=== PATIENT | female | born 1955 | race Two or more races ===

== ENCOUNTER 2016-09-10 16:08 | Emergency (ER) | payer MEDICAID ==
[~2016-09-10] VITALS: Ht 149.9 cm; Wt 52.2 kg
[2016-09-10 16:36] VITALS: BP 152/77
[2016-09-10 17:11] LABS: Basophils # (auto) 0.1 uL; Basophils % (auto) 0.7 % (0.0-2.0); DEFINITIVE VIEW TRANSMISSION; Eosinophils # (auto) 0.3 uL; Eosinophils % (auto) 1.8 % (0.0-7.0); Hematocrit 42.5 % (36.0-46.0); Hemoglobin 13.4 g/dL (12.2-16.2); Lymphocytes # (auto) 2.6 uL; Lymphocytes % (auto) 17.5 % (10.0-50.0); Mean Corpuscular Hemoglobin 24.8 pg (28.0-32.0); Mean Corpuscular Hgb Conc. 31.5 g/dL (32.0-36.0); Mean Corpuscular Volume 78.8 fL (80.0-100.0); Mean Platelet Volume 8.7 fL (7.4-10.4); Monocytes # (auto) 0.8 uL; Monocytes % (auto) 5.2 % (0.0-12.0); Neutrophils % (auto) 74.8 % (37.0-80.0); Platelet Count (auto) 300 10^3/uL (140-450); Red Cell Distribution Width 18.1 % (11.6-16.0); White Blood Cell 14.7 10^3/uL (4.4-10.8)
[2016-09-10 17:33] LABS: Albumin 3.4 g/dL (3.4-5.0); BUN/Creatinine Ratio 29.5; Calcium 9.1 mg/dL (8.5-10.1); Potassium 3.1 mmol/L (3.5-5.1)
[2016-09-10 17:36] LABS: Bilirubin, Total 0.5 mg/dL (0.2-1.0); Total Protein 7.3 g/dL (6.4-8.2)
== END 2016-09-10 22:15 | disposition left against medical advice (07) ==
LOC: ER 16:17
DX: M79.672 Pain in left foot (principal); Z53.21 Procedure and treatment not carried out due to patient leaving prior to being seen by health care provider
CPT/HCPCS: 36415; 73630; 80053; 85025

== ENCOUNTER → 2019-12-29 | Emergency (ER) | payer OTHER, MEDICAID ==
[~2019-12-29] VITALS: Ht 152.4 cm; Wt 68.0 kg
[~2019-12-29] MED LIST: SODIUM BICARBONATE 8.4 % INJ 50ML VIAL IV ONE
[2019-12-29 10:33] VITALS: BP 0/0
== END | disposition home or self-care (01) ==
LOC: EDUNIT# 10:21 → ER 10:29 → EDBD 10:29
DX: I46.9 Cardiac arrest, cause unspecified (principal); J96.90 Respiratory failure, unspecified, unspecified whether with hypoxia or hypercapnia; M19.90 Unspecified osteoarthritis, unspecified site; I10 Essential (primary) hypertension; E11.9 Type 2 diabetes mellitus without complications; Z88.8 Allergy status to other drugs, medicaments and biological substances
CPT/HCPCS: 31500; 92950